=== PATIENT | male | born 1965 | race African-American/Black ===

== ENCOUNTER 2018-01-20 10:45 | Emergency (ER) | payer OTHER ==
[~2018-01-20] VITALS: Ht 162.6 cm; Wt 74.8 kg
[~2018-01-20 10:45] MED LIST: BENADRYL50 MG PO; EXFORGE; EXFORGE 10-3201 EACH; EXFORGE 10-3201 TAB PO; KETO10TA2 PO; MEDROL4 MG PO; ORPH100T PO; SYNTHROID100 MCG; SYNTHROID100 MCG PO; SYNTHROID125 MCG PO; SYNTHROID175 MCG PO; SYNTHROID200 MCG; SYNTHROID88 MCG; ULTRACET PO
[2018-01-20] MEDS ORDERED: SYNTHROID175 MCG (11:20)
== END 2018-01-20 16:47 | disposition home or self-care (01) ==
LOC: ER 10:45
DX: S66.812A Strain of other specified muscles, fascia and tendons at wrist and hand level, left hand, initial encounter (principal); X50.0XXA Overexertion from strenuous movement or load, initial encounter; Y93.53 Activity, golf; Y92.39 Other specified sports and athletic area as the place of occurrence of the external cause; Y99.8 Other external cause status

== ENCOUNTER → 2018-06-07 | Emergency (ER) | payer OTHER ==
[~2018-06-07] VITALS: Ht 162.6 cm; Wt 75.7 kg
[~2018-06-07] MED LIST changes: +CRESTOR10 MG; +SYNTHROID175 MCG
== END | disposition home or self-care (01) ==
LOC: ER 11:25
DX: R10.32 Left lower quadrant pain (principal)

== ENCOUNTER 2020-09-15 18:09 | Emergency (ER) | payer OTHER ==
[~2020-09-15] VITALS: Ht 160 cm; Wt 74.8 kg
[2020-09-15] MEDS ORDERED: SYNTHROID150 MCG PO (18:17)
== END 2020-09-16 00:19 | disposition home or self-care (01) ==
LOC: ER 18:09
DX: K57.92 Diverticulitis of intestine, part unspecified, without perforation or abscess without bleeding (principal); R10.84 Generalized abdominal pain; Z11.52 Encounter for screening for COVID-19

== ENCOUNTER 2022-11-21 19:25 | Inpatient (IN) | payer OTHER ==
[~2022-11-21] VITALS: Ht 160 cm; Wt 76.2 kg
[~2022-11-21 19:25] MED LIST changes: +SYNTHROID150 MCG PO
[2022-11-23] MEDS ORDERED: VITAMIN D3250 MCG (14:45)
[2022-11-23] MEDS ORDERED: TIZANIDINE HCL4 MG (14:46)
[2022-11-23] MEDS ORDERED: ABANEU-SL TABL1 EACH (14:46)
[2022-11-25] MEDS ORDERED: AMLODIPINE BESY10 MG PO (10:31)
[2022-11-25] MEDS ORDERED: LOSARTAN POTASS25 MG PO (10:31)
[2022-11-25] MEDS ORDERED: PANTOPRAZOLE SO40 M2 PO (10:32)
== END 2022-11-25 14:05 | disposition home or self-care (01) | DRG 392 ==
LOC: ER 19:25 → MEDI 11-22 09:47 → SURH 11-22 09:47
PROVIDERS: ADMIT Internal Medicine; ATTEND Internal Medicine
PROC: BW21YZZ Computerized Tomography (CT Scan) of Abdomen and Pelvis using Other Contrast (ICD-10-PCS; principal; 2022-11-22)
DX: K57.32 Diverticulitis of large intestine without perforation or abscess without bleeding (principal); G47.33 Obstructive sleep apnea (adult) (pediatric); I10 Essential (primary) hypertension; E03.9 Hypothyroidism, unspecified; E87.6 Hypokalemia